=== PATIENT | male | born 1980 | race Caucasian/White ===

== ENCOUNTER 2016-12-14 21:33 | Emergency (ER) | payer BC ==
--- NOTE | 2016-12-14 22:19 | ED.PDOC ---
History of Present Illness - General Chief Complaint: Abdominal Pain Stated Complaint: abdominal pain Time Seen by Provider: 12/14/16 22:17 Information Source: patient, RN notes reviewed, Vital Signs reviewed Exam Limitations: no limitations - History of Present Illness Initial Comments: Patient reports generalized upper abd pain that started yesterday and is getting progressively worse. No fever or chills. No N/V/D/C. no SOB or chest pain. No urinary symptoms. Abdominal Pain Onset Location: epigastric Pain Radiation: no radiation Quality: steady - unable to clarify what pain feels like, not sharp, dull or crampy Timing/Duration: 24 hours Improving Factors: nothing Worsening Factors: movement - Worse when riding in truck. Associated Symptoms: denies symptoms Review of Systems - Review of Systems Constitutional: States: no symptoms reported. Denies: chills, fever, malaise, weakness EENTM: States: no symptoms reported Respiratory: States: no symptoms reported. Denies: cough, short of breath Cardiology: States: no symptoms reported. Denies: chest pain Gastrointestinal/Abdominal: States: abdominal pain. Denies: constipation, diarrhea, nausea, vomiting Genitourinary: States: no symptoms reported Musculoskeletal: States: no symptoms reported Skin: States: no symptoms reported Neurological: States: no symptoms reported Endocrine: States: no symptoms reported Hematologic/Lymphatic: States: no symptoms reported Past Medical History (General) - Vaccination History Hx Influenza Vaccination: No Family Medical History - Family History Father Family History: Unknown Physical Exam - Physical Exam General Appearance: Alert, Comfortable, No apparent distress, Well Developed, Well Groomed, Well Hydrated, Well Nourished Neck: non-tender, full range of motion, supple, normal inspection Respiratory: chest non-tender, lungs clear, normal breath sounds, no respiratory distress, no accessory muscle use Cardiovascular/Chest: regular rate, rhythm, no edema, no gallop, no JVD, no murmur Gastrointestinal/Abdominal: normal bowel sounds, guarding, tenderness - No rebound, generalized tenderness Extremity: normal range of motion, non-tender, normal inspection Neurologic: no motor/sensory deficits, alert, normal mood/affect, oriented x 3 Skin Exam: normal color, warm/dry Lymphatic: no adenopathy Special Observations: Smiling Comments: Vital Signs - 24 hr 12/14/16 21:44 Temperature 98.1 F Pulse Rate [ 92 H Right] Respiratory 18 Rate Blood Pressure 135/75 [Left Arm] O2 Sat by Pulse 98 Oximetry Progress - Progress Progress: 12/14/16 23:[address] results. ST shows gallstones but no cholecystitis. Will try IV Protonix and see if that helps with his pain. 12/15/16 00:09 Pain much improved after Protonix. Has follow up with PCP in am. Will discuss GB sono at that time. Will con't PO Protonix. - Results/Orders Results/Orders: Laboratory Tests 12/14/16 22:30 WBC 5.7 RBC 4.67 L Hgb 13.3 L Hct 40.0 L MCV 85.7 MCH 28.4 MCHC 33.3 RDW 13.5 Plt Count 179 MPV 7.6 Absolute Neuts (auto) 3.10 Absolute Lymphs (auto) 0.90 L Absolute Monos (auto) 0.50 Absolute Eos (auto) 1.20 H Absolute Basos (auto) 0.10 Neutrophils % 54.1 Lymphocytes % 15.6 L Monocytes % 8.0 Eosinophils % 21.4 H Basophils % 0.9 Sodium 138 Potassium 3.3 L Chloride 102 Carbon Dioxide 29 Anion Gap 10.3 L BUN 14 Creatinine 0.98 BUN/Creatinine Ratio 14.3 Random Glucose 84 Serum Osmolality 275.3 Calcium 8.8 Total Bilirubin 1.3 H AST 45 H ALT 89 H Alkaline Phosphatase 76 Serum Total Protein 7.0 Albumin 4.0 Globulin 3.0 Albumin/Globulin Ratio 1.3 Amylase 68 Lipase 48 - EKG/XRAY/CT CT Ordered: Yes - Abd/Pelvis: cholelithiasis o/w nl Departure - Departure Clinical Impression: Gastritis Cholelithiasis Qualifiers: Cholelithiasis location: gallbladder Cholecystitis presence: without cholecystitis Biliary obstruction: without biliary obstruction Qualifier Code: ( K80.20) Calculus of gallbladder without cholecystitis without obstruction Time of Disposition: 00:10 Disposition: Discharge to Home or Self Care Condition: Good Departure Forms: ED Discharge - Pt. Copy, Patient Portal Self Enrollment Instructions: DI for Gastritis, DI for Gallstones Diet: resume usual diet Activity: increase activity as tolerated Referrals: Femi Cruz MD [Primary Care Provider] - 1-2 Days Prescriptions: Pantoprazole Sodium [Protonix] 40 mg PO QAM #30 tab Home Medications: Ambulatory Orders Pantoprazole Sodium [Protonix] 40 mg PO QAM #30 tab 12/15/16
[2016-12-14] MEDS ORDERED: SODIUM CHLORIDE 0.9% 1000ML 1,000 ML IVS ONE (22:21)
--- NOTE | 2016-12-14 23:29 | CT ---
EXAM DESCRIPTION: CT Abdomen/Pelvis w/Contrast CLINICAL HISTORY: generalized abd pain COMPARISON: None Available TECHNIQUE: Contiguous axial images of the abdomen and pelvis were obtained after the administration of intravenous contrast followed by reconstruction images. FINDINGS: There are gallstones within the dependent portion of the gallbladder. Gallbladder is otherwise unremarkable by CT criteria. There is a small left renal cyst. There is bilateral spondylolysis at L5, with grade I spondylolisthesis at the L5/S1 level. There is a small hiatal hernia. The liver, spleen, pancreas and kidneys are otherwise within normal limits. There is no hydronephrosis or renal stones. Adrenal glands are within normal limits. Aorta is of normal caliber and tapering. There is no free fluid in the abdomen or pelvis. There is no bowel obstruction. There is no stranding of the mesenteric fat to suggest an inflammatory response. The appendix is within normal limits. There is no pericecal inflammation. IMPRESSION: Cholelithiasis. The gallbladder is otherwise unremarkable by CT criteria. Recommend further imaging as clinically indicated. Electronically signed by: Yonis Andrade MD 12/14/2016 11:28 PM CDT
[2016-12-14] MEDS ORDERED: PANTOPRAZOLE SODIUM IV 40 MG VIAL IV ONE (23:33)
[2016-12-14] MEDS ORDERED: SODIUM CHLORIDE 0.9% 10 ML VIAL ONE (23:35)
[2016-12-15 00:28] VITALS: BP 129/78
[2016-12-15 00:37] VITALS: TEMP 98; O2SAT 95
== END 2016-12-15 00:37 | disposition home or self-care (01) ==
LOC: ER 21:33
DX: R10.9 Unspecified abdominal pain (principal)

== ENCOUNTER → 2016-12-15 | Outpatient (CLI) | payer BC | END | disposition home or self-care (01) | LOC: GMAB 10:50 | PROVIDERS: ATTEND Family Medicine | DX: R10.9 Unspecified abdominal pain (principal) ==

== ENCOUNTER → 2016-12-15 | Outpatient (CLI) | payer BC ==
--- NOTE | 2016-12-15 12:32 | US ---
EXAM DESCRIPTION: Gall Bladder. Right upper quadrant abdominal ultrasound. CLINICAL HISTORY: EPIGASTRIC PAIN COMPARISON: CT abdomen/pelvis 12/14/2016 TECHNIQUE: Routine sonographic images of the right upper quadrant of the abdomen were acquired and submitted for review. FINDINGS: Liver: The liver is enlarged up to 16.9 cm. It demonstrates mildly increased echogenicity. Bile ducts- Intrahepatic and extrahepatic bile ducts not dilated with common bile duct measuring 2 mm. Gallbladder: The gallbladder contains several mobile shadowing calculi measuring up to 6 mm. The gallbladder wall is normal at 3 mm. No pericholecystic fluid. No sonographic Lazaro sign. Pancreas: Visualized portions are unremarkable, but the pancreas is not well seen due to bowel gas. Right kidney: Not well seen, but visualized portions are unremarkable. Aorta & Inferior vena cava: Not well seen due to bowel gas. Ascites: none IMPRESSION: 1. Cholelithiasis without sonographic evidence for cholecystitis. 2. Hepatomegaly with hepatic steatosis. Electronically signed by: Akbar Faye MD 12/15/2016 12:28 PM CDT
== END | disposition home or self-care (01) ==
LOC: US 09:21
PROVIDERS: ATTEND Family Medicine
DX: R10.9 Unspecified abdominal pain (principal); R10.13 Epigastric pain

== ENCOUNTER → 2017-07-12 | Outpatient (CLI) | payer BC | END | disposition home or self-care (01) | LOC: GMAB 11:41 | PROVIDERS: ATTEND Family Medicine | DX: R94.5 Abnormal results of liver function studies (principal) ==

== ENCOUNTER → 2018-04-11 | Outpatient (CLI) | payer BC | LOC: GMAE 11:50 | PROVIDERS: ATTEND Family Medicine | DX: R53.83 Other fatigue (principal) ==

== ENCOUNTER → 2019-09-27 | Outpatient (CLI) | payer BC ==
--- NOTE | 2019-09-28 09:30 | US ---
US THYROID CLINICAL STATEMENT: 38-year-old male. NODULE. No thyroid cancer or palpable mass. No prior surgery or therapy. COMPARISON: None. TECHNIQUE: Transcutaneous scanning, grayscale and Doppler modes. FINDINGS: Size right thyroid lobe: 4.6 x 2.1 x 2.0 cm Size left thyroid lobe: 5.7 x 1.7 x 1.4 cm Size isthmus: 0.22 cm Estimated total number of nodules greater than or equal to 1 cm: 2. No distinct cyst or calcifications. No overlying skin changes. Nodule 1: Size: 2.3 x 1.6 x 1.3 cm Location: Left Mid Composition: solid or almost completely solid: 2 points Echogenicity: hyperechoic: 1 point Shape: wider than tall: 0 points Margins: smooth: 0 points Echogenic foci: none: 0 points ACR Total Points: 3; ACR TI-RADS risk category: TR3 - mildly suspicious nodule. Nodule 2: Size: 1.1 x 0.8 x 0.7 cm Location: Right Mid Composition: solid or almost completely solid: 2 points Echogenicity: hypoechoic: 2 points Shape: wider than tall: 0 points Margins: ill-defined: 0 points Echogenic foci: none: 0 points ACR Total Points: 4; ACR TI-RADS risk category: TR4 - moderately suspicious nodule. No dominant solid mass or distinct cyst or calcifications in the surrounding soft tissues. IMPRESSION: 1. Nodule 1: ACR TI-RADS 2017 Category TR3. Recommend: Follow-up ultrasound in 1 year.. Recommendations based upon [employer] Best [employer] recommendations and ACR TI-RADS 2017 guidelines. Please see below*. 2. Nodule 2: ACR TI-RADS 2017 Category TR4. Recommend: Follow-up ultrasound in 1 year. 3. Soft tissue around the thyroid gland is unremarkable. *ACR TI-RADS 2017 Recommendations for imaging follow-up of nodules: TR1: No FNA or follow up TR2: No FNA or follow up TR3: FNA if >/= 2.5 cm, follow up if 1.5 - 2.4 cm in 1, 3, and 5 years TR4: FNA if >/= 1.5 cm, follow up if 1.0 - 1.4 cm in 1, 2, 3, and 5 years TR5: FNA if >/= 1.0 cm, follow up if 0.5 - 0.9 cm every year for 5 years ACR TI-RADS recommends that no more than two nodules with the highest ACR TI-RADS total point should be biopsied and no more than four nodules should be followed. These recommendations do not apply to patients with increased risk for thyroid cancer or patients with symptomatic thyroid disease. Electronically signed by: Cristhian Vazquez MD 09/28/2019 9:28 AM [facility]
== END ==
LOC: US 12:58
PROVIDERS: ATTEND Family Medicine
DX: E04.1 Nontoxic single thyroid nodule (principal)

== ENCOUNTER → 2020-03-15 | Outpatient (CLI) | payer BC | LOC: GMAHI 11:29 | PROVIDERS: ATTEND Nurse Practitioner Family | DX: E34.9 Endocrine disorder, unspecified (principal) ==